=== PATIENT | male | born 2000 | race Caucasian/White ===

== ENCOUNTER 2019-02-10 16:24 | Emergency (ER) | payer OTHER ==
[2019-02-10 16:51] VITALS: BP 120/63
--- NOTE | 2019-02-10 17:04 | ED ---
Throat Pain/Nasal Congestion - HPI Summary HPI Summary: 18 yrold male with the complaint of sore throat, runny nose, cough, ear ache. Onset four days ago. he has other ill exposures on campus at school. No NVD. No other complaints. - History of Current Complaint Chief Complaint: UCRespiratory Time Seen by Provider: 02/10/19 16:35 - Allergies/Home Medications Allergies/Adverse Reactions: Allergies Allergy/AdvReac Type Severity Reaction Status Date / Time prednisone AdvReac Anxiety Verified 02/10/19 16:52 Home Medications: Home Medications Albuterol HFA INHALER* [Ventolin HFA Inhaler*] 2 puff INH Q4H PRN 02/10/19 [ History Confirmed 02/10/19] Ascorbic Acid TAB* [Vitamin C TAB*] 1,000 mg PO DAILY PRN 02/10/19 [History Confirmed 02/10/19] Dm/Pseudoephed/Acetaminophen [Day-Time Multi-Symptom Co] 2 cap PO DAILY PRN 05/19 [History Confirmed 02/10/19] Escitalopram Oxalate [Lexapro 10 mg] 20 mg PO DAILY 02/10/19 [History Confirmed 02/10/19] Ibuprofen TAB* [Advil TAB*] 400 mg PO Q6H PRN 02/10/19 [History Confirmed ] Multivitamin [Multivitamins] 1 cap PO DAILY 02/10/19 [History Confirmed 02/10/19 ] PMH/Surg Hx/FS Hx/Imm Hx Respiratory History: Reports: Hx Asthma - Surgical History Surgery Procedure, Year, and Place: T & A Infectious Disease History: No Infectious Disease History: Denies: Traveled Outside the [place] in Last 30 Days - Family History Known Family History: Positive: None - Social History Occupation: Student Alcohol Use: Occasionally Substance Use Type: Reports: None Smoking Status (MU): Never Smoked Tobacco Review of Systems Constitutional: Negative Positive: Sore Throat, Nasal Discharge All Other Systems Reviewed And Are Negative: Yes Physical Exam Triage Information Reviewed: Yes Vital Signs On Initial Exam: Initial Vitals Temp Pulse Resp BP Pulse Ox 97.9 F 64 16 120/63 98 02/10/19 16:45 02/10/19 16:45 02/10/19 16:45 02/10/19 16:45 02/10/19 16:45 Vital Signs Reviewed: Yes Appearance: Positive: Well-Appearing, No Pain Distress Skin: Positive: Warm, Skin Color Reflects Adequate Perfusion Head/Face: Positive: Normal Head/Face Inspection Eyes: Positive: EOMI, MARLENE ENT: Positive: Pharyngeal erythema, Nasal congestion, TM red - right with erythema. Neck: Positive: Nontender Respiratory/Lung Sounds: Positive: Clear to Auscultation, Breath Sounds Present Cardiovascular: Positive: RRR. Negative: Murmur Abdomen Description: Negative: Distended Musculoskeletal: Positive: Strength/ROM Intact Neurological: Positive: Sensory/Motor Intact, Alert, Oriented to Person Place, Time, CN Intact II-III, Normal Gait, Speech Normal Psychiatric: Positive: Normal - [place] Coma Scale Best Eye Response: 4 - Spontaneous Best Motor Response: 6 - Obeys Commands Best Verbal Response: 5 - Oriented Coma Scale Total: 15 Diagnostics - Vital Signs Vital Signs Temp Pulse Resp BP Pulse Ox 02/10/19 16:45 97.9 F 64 16 120/63 98 - Laboratory Lab Statement: Any lab studies that have been ordered have been reviewed, and results considered in the medical decision making process. EENT Course/Dx - Course Course Of Treatment: 18 yr old with right OM. Rx with Amox. - Diagnoses Provider Diagnoses: Right otitis media Discharge ED - Sign-Out/Discharge Documenting (check all that apply): Patient Departure All imaging exams completed and their final reports reviewed: No Studies - Discharge Plan Condition: Good Disposition: HOME Prescriptions: Amoxicillin PO (*) [Amoxicillin 500 MG CAP*] 500 mg PO TID #30 cap Patient Education Materials: Ear Infection (ED), Upper Respiratory Infection ( ED) Referrals: No Primary Care Phys,NOPCP [Primary Care Provider] - [facility] [Outside] - 2 Days - Billing Disposition and Condition Condition: GOOD Disposition: Home
== END 2019-02-10 17:10 | disposition home or self-care (01) ==
LOC: UCCORT 16:24
DX: H66.91 Otitis media, unspecified, right ear (principal); R09.89 Other specified symptoms and signs involving the circulatory and respiratory systems; R05 Cough; J45.909 Unspecified asthma, uncomplicated; Z88.8 Allergy status to other drugs, medicaments and biological substances
CPT/HCPCS: 99202; G0463

== ENCOUNTER 2019-04-03 13:35 | Emergency (ER) | payer OTHER ==
[2019-04-03 14:31] VITALS: BP 127/63
--- NOTE | 2019-04-03 14:47 | UC ---
Throat Pain/Nasal [place] HPI - HPI Summary HPI Summary: Cough on off for 2+ weeks, head and chest congestion, ear popping with swallowing; b/l eye redness, drainage for 4 days; headaches. Pt was seen here 05/19, improved, until recently - History of Current Complaint Chief Complaint: UCRespiratory Stated Complaint: COUGH, CONGESTION, SINUS PRESSURE, SORE THROAT Time Seen by Provider: 04/03/19 14:45 Hx Obtained From: Patient Onset/Duration: Sudden Onset, Lasting Days Severity: Moderate Pain Intensity: 6 Associated Signs & Symptoms: Positive: Dysphagia, Sinus Discomfort - Allergies/Home Medications Allergies/Adverse Reactions: Allergies Allergy/AdvReac Type Severity Reaction Status Date / Time prednisone AdvReac Anxiety Verified 04/03/19 14:21 PMH/Surg Hx/FS Hx/Imm Hx Previously Healthy: Yes - Surgical History Surgical History: Yes Surgery Procedure, Year, and Place: T & A - Family History Known Family History: Negative: Cardiac Disease, Hypertension - Social History Alcohol Use: Occasionally Substance Use Type: None Smoking Status (MU): Never Smoked Tobacco Review of Systems All Other Systems Reviewed And Are Negative: Yes Constitutional: Positive: Fever, Fatigue ENT: Positive: Sore Throat, Ear Ache, Nasal Discharge, Sinus Congestion Is Patient Immunocompromised?: No Physical Exam Triage Information Reviewed: Yes Appearance: Well-Nourished, Ill-Appearing, Pain Distress Vital Signs: Initial Vital Signs Temp 98.7 F 04/03/19 14:26 Pulse 97 04/03/19 14:26 Resp 22 04/03/19 14:26 BP 127/63 04/03/19 14:26 Pulse Ox 99 04/03/19 14:26 Vital Signs Reviewed: Yes Eye Exam: Normal Eyes: Positive: Conjunctiva Inflamed, Discharge ENT: Positive: Pharyngeal erythema, Nasal drainage, TM bulging, Tonsillar swelling, Tonsillar exudate, Sinus tenderness Dental Exam: Normal Neck exam: Normal Respiratory Exam: Normal Respiratory: Positive: Chest non-tender, Lungs clear, Normal breath sounds Cardiovascular Exam: Normal Abdominal Exam: Normal Bowel Sounds: Positive: Present Musculoskeletal Exam: Normal Neurological Exam: Normal Psychological Exam: Normal Skin Exam: Normal Throat Pain/Nasal Course/Dx - Course Course Of Treatment: hx obtained, exam performed ,meds reviewed, - Differential Dx/Diagnosis Provider Diagnosis: Acute bacterial sinusitis, Conjunctivitis, Bronchospasm Discharge ED - Sign-Out/Discharge Documenting (check all that apply): Patient Departure All imaging exams completed and their final reports reviewed: No Studies - Discharge Plan Condition: Stable Disposition: HOME Prescriptions: Albuterol HFA INHALER* [Ventolin HFA Inhaler*] 2 puff INH Q4H PRN #1 mdi PRN Reason: coughing Cephalexin CAP* [Keflex CAP*] 500 mg PO BID #20 cap Erythromycin OPHTH.OINT* [Ilotycin OPHTH.OINT*] 1 applic BOTH EYES BEDTIME #1 tube Fluticasone NASAL SPRAY 50MCG* [Flonase NASAL SPRAY 50MCG*] 2 spray BOTH NARES DAILY #1 btl Patient Education Materials: Sinusitis (ED) Referrals: No Primary Care Phys,NOPCP [Primary Care Provider] - Additional Instructions: 1. take the medications as prescribed. 2. Rest, increase clear fluids 3. Follow up as needed. - Billing Disposition and Condition Condition: STABLE Disposition: Home
[2019-04-03] MEDS ORDERED: Albuterol 2.5 MG/3 ML NEB.SOL* (0.083%) INH ONE (14:55)
== END 2019-04-03 15:18 | disposition home or self-care (01) ==
LOC: UCCORT 13:35
DX: J01.90 Acute sinusitis, unspecified (principal); H10.9 Unspecified conjunctivitis; J98.01 Acute bronchospasm; B96.89 Other specified bacterial agents as the cause of diseases classified elsewhere; Z88.8 Allergy status to other drugs, medicaments and biological substances
CPT/HCPCS: 99212; G0463